=== PATIENT | female | born 1995 | race African-American/Black ===

== ENCOUNTER 2021-03-03 05:06 | Emergency (ER) | payer BC ==
[2021-03-03 05:21] VITALS: BP 119/82; PULSE 63; RESP 18; TEMP 98.6
--- NOTE | 2021-03-03 05:45 | ED ---
Recheck HPI - General Chief Complaint: Recheck/Abnormal Lab/Rx Stated Complaint: Covid Test Time Seen by Provider: 03/03/21 05:08 Source: patient, RN notes reviewed, old records reviewed Mode of arrival: ambulatory Limitations: no limitations - History of Present Illness Initial Comments: This is a 26-year-old female to the ER for evaluation she presents today for evaluation regards to needing coronavirus swab. Patient is asymptomatic no chest pain shortness breath or abdominal pain no fevers no travel show sick contacts no nausea vomiting or diarrhea MD Complaint: medication refill request (Patient needs coronavirus test) -: minutes(s) Returns Today for: request for prescription (Needs test for coronavirus) Symptoms Since Prior Visit: no new symptoms Context: planned re-check Associated Symptoms: none - Related Data Allergies Allergy/AdvReac Type Severity Reaction Status Date / Time No Known Allergies Allergy Verified 03/03/21 05:21 Review of Systems ROS Statement: Those systems with pertinent positive or pertinent negative responses have been documented in the HPI. ROS Other: All systems not noted in ROS Statement are negative. Past Medical History Past Medical History: No Reported History History of Any Multi-Drug Resistant Organisms: None Reported Past Surgical History: No Surgical Hx Reported Past Psychological History: No Psychological Hx Reported Smoking Status: Never smoker Past Alcohol Use History: None Reported Past Drug Use History: None Reported General Exam General appearance: alert, in no apparent distress Head exam: Present: atraumatic, normocephalic, normal inspection Eye exam: Present: normal appearance, PERRL, EOMI. Absent: scleral icterus, conjunctival injection, periorbital swelling ENT exam: Present: normal exam, mucous membranes moist Neck exam: Present: normal inspection. Absent: tenderness, meningismus, lymphadenopathy Respiratory exam: Present: normal lung sounds bilaterally. Absent: respiratory distress, wheezes, rales, rhonchi, stridor Cardiovascular Exam: Present: regular rate, normal rhythm, normal heart sounds. Absent: systolic murmur, diastolic murmur, rubs, gallop, clicks GI/Abdominal exam: Present: soft, normal bowel sounds. Absent: distended, tenderness, guarding, rebound, rigid Extremities exam: Present: normal inspection, full ROM, normal capillary refill. Absent: tenderness, pedal edema, joint swelling, calf tenderness Back exam: Present: normal inspection Neurological exam: Present: alert, oriented X3, CN II-XII intact Psychiatric exam: Present: normal affect, normal mood Skin exam: Present: warm, dry, intact, normal color. Absent: rash Course Vital Signs 03/03/21 05:17 Temperature 98.6 F Pulse Rate 63 Respiratory 18 Rate Blood Pressure 119/82 O2 Sat by Pulse 97 Oximetry - Reevaluation(s) Reevaluation #1: 03/03/21 06:11 Medical record is reviewed Reevaluation #2: 03/03/21 06:11 Patient is informed of findings Medical Decision Making - Medical Decision Making 26 female to the emergency department for evaluation for coronavirus testing testing is negative and patient can be discharged home Disposition Clinical Impression: Normal exam Disposition: HOME SELF-CARE Condition: Good Instructions (If sedation given, give patient instructions): Normal Exam (ED) Is patient prescribed a controlled substance at d/c from ED?: No Referrals: None,Stated [Primary Care Provider] - 1-2 days
== END 2021-03-03 06:31 | disposition home or self-care (01) ==
LOC: EC 05:06
DX: Z76.0 Encounter for issue of repeat prescription (principal); Z20.822 Contact with and (suspected) exposure to COVID-19
CPT/HCPCS: 87635; 99282